=== PATIENT | female | born 1960 | race Hispanic/Latino ===

== ENCOUNTER 2023-03-08 09:53 | Outpatient (CLI) | payer MEDICAID, SELFPAY ==
--- NOTE | ~2023-03-08 | XR_ITS ---
SHOULDER 2+ VIEWS RT 03/08/2023 Indication: Right shoulder pain Procedure: 4 views right shoulder Comparison: No prior studies for comparison. Findings: There is mild polyarticular osteoarthritis of the right shoulder. Normal mineralization. No fracture or traumatic malalignment. No significant soft tissue abnormality. No foreign body. Impression: 1: Mild polyarticular osteoarthritis of the right shoulder. Reviewed, dictated and finalized at location L. Impression: 1: Mild polyarticular osteoarthritis of the right shoulder.
--- NOTE | 2023-03-08 11:00 | NEURO_ITS ---
Impression: # Complains of numbness of hands. History of left pointing finger distal amputation. # Subtle evolving Carpal Tunnel Syndrome. # No ulnar neuropathy. # Normal needle/EMG exam. # Clinical correlation recommended. Nerve Conduction Studies Anti Sensory Summary Table Stim Site NR Peak (ms) P-T Amp (?V) Site1 Site2 Delta-P (ms) Dist (cm) Ha (m/s) Left Median Anti Sensory (2-3nd Digit) Wrist 3.2 13.9 Wrist 2-3nd Digit 3.2 14.0 44 Wrist 2-3nd Digit 3.2 14.0 44 Right Median Anti Sensory (2-3nd Digit) Wrist 3.3 78.8 Wrist 2-3nd Digit 3.3 14.0 42 Wrist 4.9 38.7 Wrist 2-3nd Digit 3.3 14.0 42 Left Radial Anti Sensory (Base 1st Digit) Wrist 1.7 42.9 Wrist Base 1st Digit 1.7 0.0 Right Radial Anti Sensory (Base 1st Digit) Wrist 1.9 31.5 Wrist Base 1st Digit 1.9 0.0 Left Ulnar Anti Sensory (5th Digit) Wrist 2.4 38.8 Wrist 5th Digit 2.4 14.0 58 Right Ulnar Anti Sensory (5th Digit) Wrist 2.5 26.5 Wrist 5th Digit 2.5 14.0 56 Motor Summary Table Stim Site NR Onset (ms) O-P Amp (mV) Site1 Site2 Delta-0 (ms) Dist (cm) Ha (m/s) Left Median Motor (Abd Poll Brev) Wrist 3.5 3.8 Elbow Wrist 4.6 26.0 57 Elbow 8.1 3.8 Right Median Motor (Abd Poll Brev) Wrist 3.3 8.2 Elbow Wrist 5.1 26.0 51 Elbow 8.4 7.0 Left Ulnar Motor (Abd Dig Minimi) Wrist 2.3 6.9 A Elbow Wrist 4.7 26.0 55 A Elbow 7.0 5.1 Right Ulnar Motor (Abd Dig Minimi) Wrist 2.8 7.0 A Elbow Wrist 4.6 26.0 57 A Elbow 7.4 5.9 F Wave Studies NR F-Lat (ms) L-R F-Lat (ms) Left Median (Mrkrs) (Abd Poll Brev) 27.50 0.62 Right Median (Mrkrs) (Abd Poll Brev) 26.88 0.62 Left Ulnar (Mrkrs) (Abd Dig Min) 26.73 1.22 Right Ulnar (Mrkrs) (Abd Dig Min) 25.51 1.22 EMG Side Muscle Nerve Root Ins Act Fibs Amp Dur Recrt Comment Right 1stDorInt Ulnar C8-T1 Nml Nml Nml Nml Nml Right Ext Indicis Radial (Post Int) C7-8 Nml Nml Nml Nml Nml Right Ext Digitorum Radial (Post Int) C7-8 Nml Nml Nml Nml Nml Right BrachioRad Radial C5-6 Nml Nml Nml Nml Nml Right PronatorTeres Median C6-7 Nml Nml Nml Nml Nml Right Abd Poll Brev Median C8-T1 Nml Nml Nml Nml Nml Left 1stDorInt Ulnar C8-T1 Nml Nml Nml Nml Nml Left Ext Indicis Radial (Post Int) C7-8 Nml Nml Nml Nml Nml Left Ext Digitorum Radial (Post Int) C7-8 Nml Nml Nml Nml Nml Left BrachioRad Radial C5-6 Nml Nml Nml Nml Nml Left PronatorTeres Median C6-7 Nml Nml Nml Nml Nml Left Abd Poll Brev Median C8-T1 Nml Nml Nml Nml Nml MTDD
--- NOTE | 2023-03-09 07:07 | PCNEURO ---
Paper documentation exists on this patient due to [facility] downtime on 03/08/23 from to 00:30-19:30 .
== END 2023-03-08 09:54 | disposition home or self-care (01) ==
LOC: ANHIMG 16:01
PROVIDERS: PCP Physician Assistant; Visit Provider Physician Assistant
DX: M19.011 Primary osteoarthritis, right shoulder (principal); G56.00 Carpal tunnel syndrome, unspecified upper limb
CPT/HCPCS: 73030; 95886; 95911

== ENCOUNTER 2023-07-21 09:45 | Outpatient (CLI) | payer MEDICAID, SELFPAY ==
--- NOTE | ~2023-07-21 | XR_ITS ---
EXAMINATION: XR lumbar spine 2-3V DATE: 07/21/2023 10:01 INDICATION: Low back pain radiating down right leg. TECHNIQUE: 3 views of lumbar spine were obtained. COMPARISON: None. FINDINGS: Bone alignment is normal. Vertebral body heights are normal. There is moderately decreased disc height at L5-S1. There are endplate osteophytes at all levels. There is multilevel facet joint o steoarthritis, severe in lower lumbar spine. Surgical clips in the right upper quadrant are likely fr om cholecystectomy. IMPRESSION: 1. Moderate lower lumbar spondylosis. Reviewed, dictated and finalized at location E.
== END 2023-07-21 09:46 | disposition home or self-care (01) ==
LOC: ANHIMG 09:47
PROVIDERS: PCP Physician Assistant; Visit Provider Physician Assistant
DX: M47.896 Other spondylosis, lumbar region (principal)
CPT/HCPCS: 72100

== ENCOUNTER 2023-09-01 00:54 | Day surgery (SDC) | payer MEDICAID, SELFPAY ==
[2023-08-22 13:25] VITALS: BMI 39.9
--- NOTE | 2023-08-30 10:16 | SUR.PREOP ---
Patient called regarding upcoming procedure. Message left on patient's voicemail regarding preop instructions, appointment times, and procedure prep.
[2023-09-01 06:44] VITALS: BP 147/88; PULSE 81; RESP 20; TEMP 36.1; O2SAT 100
[2023-09-01 07:03] LABS: Glucose Point of Care 153 mg/dl (65-105)
[2023-09-01] MEDS: LACTATED RINGERS 1,000 ML 150 ML IV CONT (07:03)
--- NOTE | 2023-09-01 07:51 | P.PNAN_ITS ---
Anes - Initial Pre Proc Eval Procedure: Operation Date: 09/01/23 08:00 Proposed Procedures p Screening Colonoscopy - Simon Cazares MD Date/Time: 09/01/23 07:51 Surgeon: Simon Cazares MD Pre Op Diagnosis: neoplasm screening Patient Data Age: 63 Gender: F Height: 1.22 m Weight: 55 kg Last Vital Signs Temp 97 F L 09/01/23 06:44 Pulse 81 09/01/23 06:44 Resp 20 09/01/23 06:44 BP 147/88 H 09/01/23 06:44 Pulse Ox 100 09/01/23 06:44 O2 Del Method Room Air 09/01/23 06:44 Allergies Allergy/AdvReac Type Severity Reaction Status Date / Time No Known Allergies Allergy Verified 09/01/23 06:43 Home Medications Medication Instructions Recorded Confirmed Type albuterol sulfate 90 mcg/actuation 2 inh inhalation PRN PRN Shortness 08/22/23 08/22/23 History aerosol inhaler Of Breath Or Wheezing cyclobenzaprine 5 mg tablet 5 mg PO BID 08/22/23 08/22/23 History dapagliflozin propanediol 10 mg 10 mg PO DAILY 08/22/23 08/22/23 History tablet (Farxiga) gabapentin 300 mg capsule 300 mg PO TID 08/22/23 08/22/23 History lisinopril 5 mg tablet 5 mg PO DAILY 08/22/23 08/22/23 History mirtazapine 15 mg tablet 15 mg PO HS 08/22/23 08/22/23 History nateglinide 60 mg tablet 60 mg PO BID 08/22/23 08/22/23 History pravastatin 80 mg tablet 80 mg PO HS 08/22/23 08/22/23 History quetiapine 25 mg tablet 25 mg PO HS 08/22/23 08/22/23 History Laboratory Tests 09/01/23 06:54 POC Capillary Glucose 153 H mg/dl (65-105) Patient hx anesthesia problems: none Family hx anesthesia problems: none Results Review: All pre-operative results and documents have been reviewed as part of the pre- operative evaluation. PMFSH Social History Social History Living arrangements: with family Anes - Eval Final PreProcedure Day of Procedure 09/01/23 07:51 Patient weight: obese Heart: regular rate and rhythm Lungs: clear to auscultation Airway: Mallampati scale class III Neurological: alert and oriented Last oral intake: >/= 8 hours ASA classification: III Emergent: no Anesthetic plan: proceed Anesthesia type and monitoring: general GIVS and standard monitoring Results Review: All pre-operative results and documents have been reviewed as part of the pre- operative evaluation. Informed Consent: The patient's anesthetic plan and its attendant risks and benefits were discussed with the patient/family/POA. Questions were solicited and answers provided to the satisfaction of the patient/family/POA.
--- NOTE | 2023-09-01 07:56 | PM.HPGS ---
History of Present Illness History of Present Illness Consent: Risks, benefits, and alternatives have been discussed and questions answered. Patient agrees to proceed with procedure. Chief complaint: neoplasm screening Narrative: Ange Cohen is a 63 year old female here for screening colonoscopy, last one 5 years ago Review of Systems Constitutional: Constitutional: Denies headache(s) and Denies weakness Eyes: Eyes: Denies blurry vision ENT: Reports Normal hearing present, Denies headache(s) and Denies neck pain Cardiovascular: Cardiovascular: Denies chest pain and Denies dyspnea Respiratory: Respiratory: Denies dyspnea Gastrointestinal: Gastrointestinal: Reports no additional gastrointestinal complaints Genitourinary: Genitourinary: Denies dysuria Musculoskeletal: Musculoskeletal: Denies neck pain Integumentary/Breasts: Skin/Breast: Denies dry skin Neurologic: Reports Normal hearing present, Denies headache(s) and Denies weakness Psychiatric: Psychiatric: Denies anxiety Endocrine: Endocrine: Denies change in body appearance Hematologic/Lymphatic: Hematologic/Lymphatic: Denies easy bleeding Allergic/Immunologic: Allergic/Immunologic: Denies urticaria PMFSH Past Medical History Medical History (Updated 09/01/23 @ 07:57 by Simon Cazares MD) Colon cancer screening Social History Social History Living arrangements: with family Meds Home Medications and Allergies Home Medications Medication Instructions Recorded Confirmed Type albuterol sulfate 90 mcg/actuation 2 inh inhalation PRN PRN Shortness 08/22/23 08/22/23 History aerosol inhaler Of Breath Or Wheezing cyclobenzaprine 5 mg tablet 5 mg PO BID 08/22/23 08/22/23 History dapagliflozin propanediol 10 mg 10 mg PO DAILY 08/22/23 08/22/23 History tablet (Farxiga) gabapentin 300 mg capsule 300 mg PO TID 08/22/23 08/22/23 History lisinopril 5 mg tablet 5 mg PO DAILY 08/22/23 08/22/23 History mirtazapine 15 mg tablet 15 mg PO HS 08/22/23 08/22/23 History nateglinide 60 mg tablet 60 mg PO BID 08/22/23 08/22/23 History pravastatin 80 mg tablet 80 mg PO HS 08/22/23 08/22/23 History quetiapine 25 mg tablet 25 mg PO HS 08/22/23 08/22/23 History Allergies Allergy/AdvReac Type Severity Reaction Status Date / Time No Known Allergies Allergy Verified 09/01/23 06:43 Vital Signs Vital Signs - 24 hr 09/01/23 06:44 Temperature 97 F L Pulse Rate 81 Respiratory Rate 20 Blood Pressure 147/88 H Pulse Oximetry 100 Oxygen Delivery Room Air Exam Const: General: comfortable and no acute distress HENMT: Face/Nose/Sinus: Normal nares present Eyes: General: appearance normal, both eyes and all related structures Neck: Neck: no JVD Resp: Auscultation: clear to auscultation bilaterally Cardio: Rate: regular rate Rhythm: regular rhythm GI: Inspection: non-distended GI Palp: Yes Soft to palpation Skin: General skin exam: normal color Neuro: General: gait normal Speech: normal speech Extrem: General: normal to inspection Psych: Mental Status: mental status grossly normal Assessment and Plan Assessment and plan (1) Colon cancer screening: Code(s): Z12.11 - Encounter for screening for malignant neoplasm of colon Status: Acute Assessment and Plan: colonoscopy
[2023-09-01 08:23] VITALS: BP 110/54; PULSE 65; RESP 18; O2SAT 100
[2023-09-01 08:33] VITALS: BP 139/55; PULSE 84; RESP 18; O2SAT 100
[2023-09-01 08:43] VITALS: BP 162/87; PULSE 72; RESP 14; O2SAT 100
== END 2023-09-01 08:57 | disposition home or self-care (01) ==
PROVIDERS: PCP Physician Assistant; Visit Provider Internal Medicine Gastroenterology
PROC: 0DJD8ZZ Inspection of Lower Intestinal Tract, Via Natural or Artificial Opening Endoscopic (ICD-10-PCS; CPT 45378; principal; 2023-09-01 08:00)
DX: Z12.11 Encounter for screening for malignant neoplasm of colon (principal); K57.30 Diverticulosis of large intestine without perforation or abscess without bleeding; K64.8 Other hemorrhoids; Z79.51 Long term (current) use of inhaled steroids; Z79.84 Long term (current) use of oral hypoglycemic drugs; E66.9 Obesity, unspecified; Z68.37 Body mass index [BMI] 37.0-37.9, adult
CPT/HCPCS: 45378; 82948; J2704; J7120

== ENCOUNTER 2024-05-08 09:33 | Outpatient (CLI) | payer MEDICAID, SELFPAY ==
--- NOTE | 2024-05-08 | ECG_ITS ---
Test Date: 2024-05-08 10:03:09 Measurements Intervals [place] Rate: 73 P: 40 GA: 149 QRS: -11 QRSD: 82 T: 56 QT: 385 QTc: 424 Interpretive Statements SINUS RHYTHM No previous ECG available for comparison Electronically Signed On 05-08-2024 10:46:36 CDT by Mayda Jenkins M.D.
--- NOTE | ~2024-05-08 | XR_ITS ---
EXAMINATION: XR chest 2V 05/08/2024 09:50 INDICATION: Chest pain PROCEDURE: 2 view chest COMPARISON: No prior studies for comparison. FINDINGS: The lungs are clear. The cardiomediastinal silhouette is within normal limits. There are no pleural effusions. There is no pneumothorax suspected. IMPRESSION: 1: NO ACUTE CARDIOPULMONARY DISEASE. Reviewed, dictated and finalized at location B.
== END 2024-05-08 09:34 | disposition home or self-care (01) ==
PROVIDERS: PCP Physician Assistant; Visit Provider Physician Assistant
DX: R07.9 Chest pain, unspecified (principal)
CPT/HCPCS: 71046; 93005

== ENCOUNTER 2024-07-23 09:34 | Outpatient (CLI) | payer OTHER, SELFPAY ==
--- NOTE | ~2024-07-23 | XR_ITS ---
EXAM: XR shoulder LT min 2V, XR humerus LT DATE: 07/23/2024 09:58 HISTORY: Pain in left arm, posterior pain, fall 2 wks ago . COMPARISON: None available. FINDINGS: Decreased mineralization. No fracture or dislocation. No lytic or blastic lesion. Moderate AC joint and glenohumeral joint degenerative change. Mild degenerative change and enthesopathy at th e elbow. No erosion or periosteal change. Soft tissues within normal limits. IMPRESSION: No acute osseous finding in the left shoulder or left humerus. Reviewed, dictated and finalized at location K. IMPRESSION: No acute osseous finding in the left shoulder or left humerus.
== END 2024-07-23 09:35 | disposition home or self-care (01) ==
LOC: ANHIMG 09:35
PROVIDERS: PCP Physician Assistant; Visit Provider Physician Assistant
DX: M81.0 Age-related osteoporosis without current pathological fracture (principal); M79.602 Pain in left arm; W19.XXXA Unspecified fall, initial encounter
CPT/HCPCS: 73030; 73060